=== PATIENT | male | born 1990 | race Caucasian/White ===

== ENCOUNTER 2020-05-20 21:37 | Emergency (ER) | payer OTHER ==
[~2020-05-20 21:37] MED LIST: ADDERALL XR25 MG PO; AMOXICILLIN500 M2 PO; AUGMENTIN 875 M1 TAB PO; CIPROFLOXACIN500 MG PO; CLARITIN-D 12 H1 TAB PO; CLARITIN10 MG PO; CYCLOBENZAPRINE10 MG PO; DIFLUCAN150 MG PO; FLONASE ALLERG9.9 ML NAS; FLONASE ALLERG9.9 ML NS; MOTRIN600 MG PO; Motrin,Rufen800 MG PO; NKHM; PREDNISONE10 MG PO; PROVENTIL0.09 MG/AC IH; PROZAC10 MG PO; ROBITUSSIN DM 105 ML PO; TESSALON PERLE100 M1 PO; UNKNOWN MED; VICODIN 5/500 505 MG PO; VICODIN 500 MG-1 TAB PO; ZITHROMAX250 MG PO; ZOLOFT25 MG
[2020-05-20] MEDS ORDERED: CLINDAMYCIN HC300 MG PO (23:07)
== END 2020-05-20 23:27 | disposition home or self-care (01) ==
LOC: ED 21:37
DX: L02.821 Furuncle of head [any part, except face] (principal)

== ENCOUNTER 2020-06-07 19:16 | Observation (INO) | payer OTHER ==
[~2020-06-07] VITALS: Ht 193 cm; Wt 119.4 kg
[~2020-06-07 19:16] MED LIST changes: +CLINDAMYCIN HC300 MG PO
[2020-06-07 19:28] VITALS: BP 121/89
[2020-06-07 20:22] LABS: BASO % 0.3 % (0.0-1.0); EOS # 0.2 10*3/uL (0.0-0.4); HEMATOCRIT 49.7 % (42.0-52.0); LYMPH # 2.5 10*3/uL (1.3-4.4); LYMPH % 28.2 % (27.0-41.0); MEAN CELL VOLUME 86.7 fl (80.0-94.0); MEAN CORPUSCULAR HGB 28.6 pg (27.0-31.0); MONO # 0.7 10*3/uL (0.1-1.0); MONO % 7.2 % (3.0-9.0); NEUT # 5.6 10*3/uL (2.3-7.9); NEUT % 62.1 % (47.0-73.0); PLATELET COUNT AUTOMATED 228 10*3/uL (130-400); RED BLOOD COUNT 5.73 10*6/uL (4.50-5.90); RED CELL DISTRI WIDTH 13.9 % (0-14.5)
[2020-06-07 20:50] LABS: ALBUMIN 3.7 gm/dl (3.1-4.5); ALKALINE PHOSPHATASE 109 U/L (45-117); BUN 6 mg/dl (7-24); CHLORIDE 105 mmol/L (98-107); CREATININE 1.04 mg/dL (0.70-1.30); SGOT/AST 23 IU/L (3-35); SGPT/ALT 55 U/L (12-78); SODIUM 138 mmol/L (136-145); TOTAL PROTEIN 8.3 gm/dL (6.4-8.2)
[2020-06-07 23:20] VITALS: BP 128/85
[2020-06-08 01:25] VITALS: BP 129/88
[2020-06-08 06:03] LABS: URINE AMPHETAMINES > 1000 (1000ng/ml); URINE BARBITURATES < 200 (200ng/ml); URINE BENZODIAZEPINES < 200 (200ng/ml); URINE CANNABINOIDS (THC) < 50 (50ng/ml); URINE COCAINE < 300 (300ng/ml); URINE METHADONE < 300 (300ng/ml); URINE OPIATES < 300 (300ng/ml)
[2020-06-08 06:09] LABS: URINE PHENCYCLIDINE < 25 (25ng/ml)
[2020-06-08 07:21] LABS: BASO % 0.2 % (0.0-1.0); EOS # 0.1 10*3/uL (0.0-0.4); EOS % 0.9 % (1.0-4.0); LYMPH # 0.7 10*3/uL (1.3-4.4); MEAN CELL VOLUME 86.4 fl (80.0-94.0); MEAN CORPUSCULAR HGB 28.6 pg (27.0-31.0); MEAN CORPUSCULAR HGB CONC 33.1 g/dl (33.0-37.0); MEAN PLATELET VOLUME 10.1 fl (9.6-12.3); MONO # 0.4 10*3/uL (0.1-1.0); MONO % 4.4 % (3.0-9.0); NEUT # 7.3 10*3/uL (2.3-7.9); NEUT % 86.1 % (47.0-73.0); PLATELET COUNT AUTOMATED 203 10*3/uL (130-400); RED BLOOD COUNT 5.67 10*6/uL (4.50-5.90); WHITE BLOOD COUNT 8.5 10*3/uL (4.8-10.8)
[2020-06-08 07:57] LABS: ALBUMIN 3.4 gm/dl (3.1-4.5); ALKALINE PHOSPHATASE 105 U/L (45-117); BUN 7 mg/dl (7-24); CHLORIDE 106 mmol/L (98-107); CREATININE 1.01 mg/dL (0.70-1.30); POTASSIUM 3.6 mmol/L (3.5-5.1); SGOT/AST 19 IU/L (3-35); SGPT/ALT 49 U/L (12-78); SODIUM 137 mmol/L (136-145); TOTAL PROTEIN 7.7 gm/dL (6.4-8.2)
[2020-06-08 08:00] VITALS: BP 139/81
[2020-06-08 12:00] VITALS: BP 144/69
[2020-06-08 16:00] VITALS: BP 112/67
[2020-06-08 20:00] VITALS: BP 120/66
[2020-06-09] VITALS: BP 109/64
[2020-06-09 06:42] LABS: BASO % 0.5 % (0.0-1.0); EOS # 0.2 10*3/uL (0.0-0.4); EOS % 4.3 % (1.0-4.0); HEMATOCRIT 44.3 % (42.0-52.0); LYMPH # 1.1 10*3/uL (1.3-4.4); LYMPH % 19.4 % (27.0-41.0); MEAN CELL VOLUME 86.5 fl (80.0-94.0); MEAN CORPUSCULAR HGB 28.3 pg (27.0-31.0); MEAN CORPUSCULAR HGB CONC 32.7 g/dl (33.0-37.0); MONO # 0.5 10*3/uL (0.1-1.0); MONO % 8.4 % (3.0-9.0); NEUT # 3.7 10*3/uL (2.3-7.9); PLATELET COUNT AUTOMATED 155 10*3/uL (130-400); RED BLOOD COUNT 5.12 10*6/uL (4.50-5.90); RED CELL DISTRI WIDTH 14.1 % (0-14.5); WHITE BLOOD COUNT 5.6 10*3/uL (4.8-10.8)
[2020-06-09 07:08] LABS: BUN 7 mg/dl (7-24); CHLORIDE 105 mmol/L (98-107); CREATININE 1.03 mg/dL (0.70-1.30); POTASSIUM 3.4 mmol/L (3.5-5.1); SODIUM 138 mmol/L (136-145)
[2020-06-09 08:00] VITALS: BP 123/73
[2020-06-09 12:00] VITALS: BP 124/70
[2020-06-09 16:00] VITALS: BP 127/73
[2020-06-09 20:00] VITALS: BP 133/66
[2020-06-10] VITALS: BP 137/76
[2020-06-10 06:57] LABS: BUN 6 mg/dl (7-24); CHLORIDE 109 mmol/L (98-107); CREATININE 0.94 mg/dL (0.70-1.30); POTASSIUM 3.8 mmol/L (3.5-5.1); SODIUM 141 mmol/L (136-145)
[2020-06-10 08:00] VITALS: BP 123/73
[2020-06-10] MEDS ORDERED: DOXYCYCLINE100 M3 PO (11:57)
[2020-06-10] MEDS ORDERED: CEPHALEXIN500 M1 PO (11:57)
== END 2020-06-10 13:00 | disposition home or self-care (01) ==
LOC: ED 19:16 → EDHOLD 06-08 00:49 → 5E 06-08 00:49
PROVIDERS: Family Medicine; Internal Medicine; Nurse Practitioner Family; ADMIT Internal Medicine; ATTEND Internal Medicine
DX: L03.116 Cellulitis of left lower limb (principal); R00.0 Tachycardia, unspecified; E87.2 Acidosis; F17.220 Nicotine dependence, chewing tobacco, uncomplicated; R73.9 Hyperglycemia, unspecified; E87.6 Hypokalemia; E87.8 Other disorders of electrolyte and fluid balance, not elsewhere classified; R79.89 Other specified abnormal findings of blood chemistry; R50.9 Fever, unspecified; Z71.6 Tobacco abuse counseling

== ENCOUNTER 2020-11-11 22:53 | Emergency (ER) | payer OTHER ==
[~2020-11-11] VITALS: Ht 193 cm; Wt 127.0 kg
[~2020-11-11 22:53] MED LIST changes: +CEPHALEXIN500 M1 PO; +DOXYCYCLINE100 M3 PO
[2020-11-12] MEDS ORDERED: MEDROL DOSEPAK4 MG PO (00:48)
[2020-11-12] MEDS ORDERED: CYCLOBENZAPRINE10 MG PO (00:48)
== END 2020-11-12 01:01 | disposition home or self-care (01) ==
LOC: ED 22:53
DX: M54.42 Lumbago with sciatica, left side (principal); F17.200 Nicotine dependence, unspecified, uncomplicated

== ENCOUNTER 2021-06-10 21:39 | Emergency (ER) | payer OTHER ==
[~2021-06-10 21:39] MED LIST changes: +MEDROL DOSEPAK4 MG PO
== END 2021-06-10 22:46 | disposition home or self-care (01) ==
LOC: ED 21:39
DX: R51.9 Headache, unspecified (principal); Z20.822 Contact with and (suspected) exposure to COVID-19; R50.9 Fever, unspecified

== ENCOUNTER 2021-06-24 21:40 | Emergency (ER) | payer OTHER ==
[~2021-06-24] VITALS: Ht 193 cm; Wt 127.0 kg
[2021-06-24 22:28] LABS: BASO % 0.4 % (0.0-1.0); EOS # 0.2 10*3/uL (0.0-0.4); EOS % 2.4 % (1.0-4.0); HEMATOCRIT 46.1 % (42.0-52.0); LYMPH # 2.8 10*3/uL (1.3-4.4); LYMPH % 34.5 % (27.0-41.0); MEAN CORPUSCULAR HGB 28.9 pg (27.0-31.0); MEAN CORPUSCULAR HGB CONC 33.6 g/dl (33.0-37.0); MEAN PLATELET VOLUME 9.5 fl (9.6-12.3); MONO # 0.5 10*3/uL (0.1-1.0); MONO % 6.6 % (3.0-9.0); NEUT # 4.5 10*3/uL (2.3-7.9); NEUT % 55.9 % (47.0-73.0); PLATELET COUNT AUTOMATED 194 10*3/uL (130-400); RED BLOOD COUNT 5.36 10*6/uL (4.50-5.90); RED CELL DISTRI WIDTH 13.3 % (0-14.5); WHITE BLOOD COUNT 8.1 10*3/uL (4.8-10.8)
[2021-06-24] MEDS ORDERED: ZOFRAN4 MG PO (22:28)
[2021-06-24 22:51] LABS: ALKALINE PHOSPHATASE 90 U/L (45-117); BUN 12 mg/dl (7-24); CHLORIDE 107 mmol/L (98-107); CREATININE 0.85 mg/dL (0.70-1.30); POTASSIUM 3.9 mmol/L (3.5-5.1); SGOT/AST 26 IU/L (3-35); SGPT/ALT 78 U/L (12-78); SODIUM 138 mmol/L (136-145); TOTAL PROTEIN 7.6 gm/dL (6.4-8.2)
== END 2021-06-25 00:27 | disposition home or self-care (01) ==
LOC: ED 21:40
PROVIDERS: Emergency Medicine
DX: R07.9 Chest pain, unspecified (principal); R19.7 Diarrhea, unspecified; R11.0 Nausea; F17.220 Nicotine dependence, chewing tobacco, uncomplicated

== ENCOUNTER 2021-07-06 15:16 | Emergency (ER) | payer OTHER ==
[~2021-07-06] VITALS: Ht 193 cm; Wt 127.0 kg
[~2021-07-06 15:16] MED LIST changes: +ZOFRAN4 MG PO
[2021-07-06] MEDS ORDERED: PREDNISONE20 M1 PO (20:00)
[2021-07-06] MEDS ORDERED: METHOCARBAMOL500 M1 PO (20:00)
== END 2021-07-06 20:07 | disposition home or self-care (01) ==
LOC: ED 15:16
DX: M54.42 Lumbago with sciatica, left side (principal); Z87.891 Personal history of nicotine dependence

== ENCOUNTER 2021-09-17 01:19 | Emergency (ER) | payer OTHER ==
[~2021-09-17] VITALS: Ht 193 cm; Wt 127.0 kg
[~2021-09-17 01:19] MED LIST changes: +METHOCARBAMOL500 M1 PO; +PREDNISONE20 M1 PO
[2021-09-17 01:36] LABS: BILIRUBIN Negative (Negative); BLOOD Negative (Negative); CLARITY Clear (Clear); COLOR Yellow (Yellow); GLUCOSE Negative (Negative); KETONE Negative (Negative); LEUKO ESTERASE Negative (Negative); NITRITE Negative (Negative); SPECIFIC GRAVITY 1.015 (1.001-1.030); UROBILINOGEN 0.2 E.U./dl (0.0-1.0)
[2021-09-17 02:01] LABS: RBC 0-2 rbc/hpf (0-2); WBC 0-2 wbc/hpf (0-5)
[2021-09-17] MEDS ORDERED: METRONIDAZOLE500 M1 PO (03:08)
[2021-09-17] MEDS ORDERED: CIPRO500 MG PO (03:08)
== END 2021-09-17 03:14 | disposition home or self-care (01) ==
LOC: ED 01:19
PROVIDERS: Internal Medicine
DX: K52.9 Noninfective gastroenteritis and colitis, unspecified (principal); K59.00 Constipation, unspecified; R30.9 Painful micturition, unspecified; M54.50 Low back pain, unspecified; F17.220 Nicotine dependence, chewing tobacco, uncomplicated; Z79.899 Other long term (current) drug therapy

== ENCOUNTER 2021-10-16 13:56 | Emergency (ER) | payer OTHER ==
[~2021-10-16] VITALS: Ht 193 cm; Wt 127.0 kg
[~2021-10-16 13:56] MED LIST changes: +CIPRO500 MG PO; +METRONIDAZOLE500 M1 PO
[2021-10-16] MEDS ORDERED: VIBRAMYCIN100 MG PO (15:34)
== END 2021-10-16 16:14 | disposition home or self-care (01) ==
LOC: ED 13:56
DX: L02.31 Cutaneous abscess of buttock (principal)

== ENCOUNTER 2021-11-16 20:45 | Emergency (ER) | payer OTHER ==
[~2021-11-16] VITALS: Wt 127.0 kg
[~2021-11-16 20:45] MED LIST changes: +VIBRAMYCIN100 MG PO
[2021-11-16] MEDS ORDERED: CEPHALEXIN500 M1 PO (21:23)
[2021-11-16] MEDS ORDERED: SEPTDS PO (21:23)
== END 2021-11-16 21:51 | disposition home or self-care (01) ==
LOC: ED 20:45
DX: L02.214 Cutaneous abscess of groin (principal); F17.200 Nicotine dependence, unspecified, uncomplicated

== ENCOUNTER 2022-01-18 22:40 | Emergency (ER) | payer OTHER ==
[~2022-01-18 22:40] MED LIST changes: +SEPTDS PO
== END 2022-01-19 01:34 | disposition left against medical advice (07) ==
LOC: ED 22:40
DX: M25.571 Pain in right ankle and joints of right foot (principal)

== ENCOUNTER → 2024-02-07 | Emergency (ER) | payer SELFPAY ==
[~2024-02-07] VITALS: Ht 193 cm; Wt 145.1 kg
[~2024-02-07] MED LIST changes: +ANTIVERT25 M2 PO; +Meclizine Hydrochloride 25 MG TAB PO ONE
[2024-02-07 07:11] LABS: BASO % 0.4 % (0.0-1.0); EOS # 0.2 10*3/uL (0.0-0.4); HEMATOCRIT 45.9 % (42.0-52.0); LYMPH # 2.3 10*3/uL (1.3-4.4); LYMPH % 33.8 % (27.0-41.0); MEAN CELL VOLUME 87.9 fl (80.0-94.0); MEAN CORPUSCULAR HGB 29.1 pg (27.0-31.0); MEAN CORPUSCULAR HGB CONC 33.1 g/dl (33.0-37.0); MEAN PLATELET VOLUME 9.6 fl (9.6-12.3); MONO # 0.5 10*3/uL (0.1-1.0); MONO % 6.9 % (3.0-9.0); NEUT # 3.9 10*3/uL (2.3-7.9); NEUT % 55.6 % (47.0-73.0); PLATELET COUNT AUTOMATED 205 10*3/uL (130-400); RED BLOOD COUNT 5.22 10*6/uL (4.50-5.90); RED CELL DISTRI WIDTH 13.4 % (0-14.5); WHITE BLOOD COUNT 6.9 10*3/uL (4.8-10.8)
[2024-02-07 07:38] LABS: BUN 13 mg/dl (9-23); CHLORIDE 106 mmol/L (98-107); POTASSIUM 4.1 mmol/L (3.4-5.1)
== END ==
LOC: ED 06:20
PROVIDERS: Internal Medicine
DX: U07.0 Vaping-related disorder (principal); R42 Dizziness and giddiness; E78.00 Pure hypercholesterolemia, unspecified; E87.6 Hypokalemia; G43.909 Migraine, unspecified, not intractable, without status migrainosus; F17.220 Nicotine dependence, chewing tobacco, uncomplicated

== ENCOUNTER 2024-02-23 07:05 | Emergency (ER) | payer OTHER ==
[~2024-02-23] VITALS: Wt 145.1 kg
[~2024-02-23 07:05] MED LIST changes: -Meclizine Hydrochloride 25 MG TAB PO ONE
[2024-02-23] MEDS ORDERED: Oxymetazoline Hydrochloride Nasal 15 ml bottle NAS ONE (07:45)
== END 2024-02-23 07:51 | disposition home or self-care (01) ==
LOC: ED 07:05
DX: J06.9 Acute upper respiratory infection, unspecified (principal); F17.220 Nicotine dependence, chewing tobacco, uncomplicated; Z79.899 Other long term (current) drug therapy

== ENCOUNTER 2024-04-24 23:56 | Emergency (ER) | payer OTHER ==
[~2024-04-24] VITALS: Ht 193 cm; Wt 90.7 kg
== END 2024-04-25 01:43 | disposition home or self-care (01) ==
LOC: ED 23:56
DX: U07.1 COVID-19 (principal); F17.220 Nicotine dependence, chewing tobacco, uncomplicated; Z79.899 Other long term (current) drug therapy

== ENCOUNTER 2024-10-16 20:28 | Inpatient (IN) | payer OTHER ==
[~2024-10-16] VITALS: Ht 193 cm; Wt 148.0 kg
[2024-10-16 20:55] VITALS: BP 144/75
[2024-10-16 22:13] LABS: BASO % 0.4 % (0.0-1.0); EOS # 0.2 10*3/uL (0.0-0.4); EOS % 1.6 % (1.0-4.0); HEMATOCRIT 44.6 % (42.0-52.0); MEAN CELL VOLUME 86.3 fl (80.0-94.0); MEAN CORPUSCULAR HGB 28.4 pg (27.0-31.0); MEAN PLATELET VOLUME 9.5 fl (9.6-12.3); MONO # 0.6 10*3/uL (0.1-1.0); NEUT # 6.5 10*3/uL (2.3-7.9); NEUT % 61.7 % (47.0-73.0); PLATELET COUNT AUTOMATED 195 10*3/uL (130-400); RED BLOOD COUNT 5.17 10*6/uL (4.50-5.90); RED CELL DISTRI WIDTH 13.8 % (0-14.5); WHITE BLOOD COUNT 10.6 10*3/uL (4.8-10.8)
[2024-10-16] MEDS ORDERED: Tdap Vaccine 0.5 ML SYR (Adult Vaccine) IM ONE (22:15)
[2024-10-16 22:44] LABS: BUN 17 mg/dl (9-23); CHLORIDE 100 mmol/L (98-107); CPK 523 U/L (34-171); POTASSIUM 3.5 mmol/L (3.4-5.1)
[2024-10-16] MEDS ORDERED: SODIUM CHLORIDE 0.9% 1,000 ML IV ONE (23:00)
[2024-10-16 23:11] LABS: ACT PARTIAL THROMBO TIME 29.9 SECONDS (20.0-32.1)
[2024-10-17] VITALS (7 sets, daily range): BP systolic 110–151; BP diastolic 45–64
[2024-10-17] MEDS ORDERED: traMADol Hydrochloride 50 MG TAB PO ONE (01:35)
[2024-10-17] MEDS ORDERED: Ondansetron Hydrochloride 4 MG/2 ML VIAL IV PRN (02:20)
[2024-10-17] MEDS ORDERED: Acetaminophen/Hydrocodone 5 MG/325 MG TABLET PO PRN (02:20)
[2024-10-17] MEDS ORDERED: ACETAMINOPHEN 325 MG TAB PO PRN (02:20)
[2024-10-17] MEDS ORDERED: SODIUM CHLORIDE 0.9% 1,000 ML IV SCH (02:25)
[2024-10-17] MEDS ORDERED: Piperacillin Sodium/Tazobact 50 ML IV SCH (06:00)
[2024-10-17 06:26] LABS: BUN 16 mg/dl (9-23); CHLORIDE 102 mmol/L (98-107); POTASSIUM 3.5 mmol/L (3.4-5.1)
[2024-10-17 06:31] LABS: BASO % 0.5 % (0.0-1.0); EOS # 0.2 10*3/uL (0.0-0.4); EOS % 1.9 % (1.0-4.0); HEMATOCRIT 41.6 % (42.0-52.0); MEAN CELL VOLUME 86.8 fl (80.0-94.0); MEAN CORPUSCULAR HGB 28.2 pg (27.0-31.0); MEAN CORPUSCULAR HGB CONC 32.5 g/dl (33.0-37.0); MEAN PLATELET VOLUME 10.1 fl (9.6-12.3); MONO # 0.5 10*3/uL (0.1-1.0); MONO % 6.5 % (3.0-9.0); NEUT # 5.1 10*3/uL (2.3-7.9); NEUT % 61.9 % (47.0-73.0); PLATELET COUNT AUTOMATED 183 10*3/uL (130-400); RED BLOOD COUNT 4.79 10*6/uL (4.50-5.90); RED CELL DISTRI WIDTH 14.1 % (0-14.5); WHITE BLOOD COUNT 8.3 10*3/uL (4.8-10.8)
[2024-10-17 06:39] LABS: ACT PARTIAL THROMBO TIME 30.2 SECONDS (20.0-32.1)
[2024-10-17] MEDS ORDERED: VANCOMYCIN/WATER FOR INJ (PEG) 400 ML IV SCH (20:00)
[2024-10-18 04:00] VITALS: BP 117/63
[2024-10-18 07:12] LABS: BASO % 0.8 % (0.0-1.0); EOS # 0.2 10*3/uL (0.0-0.4); EOS % 2.8 % (1.0-4.0); HEMATOCRIT 41.6 % (42.0-52.0); MEAN CELL VOLUME 86.3 fl (80.0-94.0); MEAN CORPUSCULAR HGB 28.6 pg (27.0-31.0); MEAN CORPUSCULAR HGB CONC 33.2 g/dl (33.0-37.0); MEAN PLATELET VOLUME 10.2 fl (9.6-12.3); MONO # 0.5 10*3/uL (0.1-1.0); MONO % 8.5 % (3.0-9.0); NEUT # 2.8 10*3/uL (2.3-7.9); NEUT % 53.2 % (47.0-73.0); PLATELET COUNT AUTOMATED 140 10*3/uL (130-400); RED BLOOD COUNT 4.82 10*6/uL (4.50-5.90); RED CELL DISTRI WIDTH 13.9 % (0-14.5); WHITE BLOOD COUNT 5.3 10*3/uL (4.8-10.8)
[2024-10-18 07:54] LABS: BUN 11 mg/dl (9-23); CHLORIDE 104 mmol/L (98-107); POTASSIUM 3.5 mmol/L (3.4-5.1)
[2024-10-18 08:00] VITALS: BP 133/79
[2024-10-18 08:03] LABS: CPK 214 U/L (34-171)
[2024-10-18] MEDS ORDERED: SODIUM CHLORIDE 0.9% 1,000 ML IV ONE (08:10)
[2024-10-18] MEDS ORDERED: Enoxaparin Sodium 40 MG/0.4 ML SYR SC SCH (10:00)
== END 2024-10-18 12:21 | disposition left against medical advice (07) | DRG 918 ==
LOC: ED 20:28 → 5E 10-17 01:58 → EDHOLD 10-17 01:58 → 5E 10-17 03:21
PROVIDERS: Nurse Practitioner Family; Student in an Organized Health Care Education/Training Program; ADMIT Family Medicine; ATTEND Family Medicine
DX: T63.331A Toxic effect of venom of brown recluse spider, accidental (unintentional), initial encounter (principal); L03.116 Cellulitis of left lower limb; F17.210 Nicotine dependence, cigarettes, uncomplicated; Z53.29 Procedure and treatment not carried out because of patient's decision for other reasons; Z79.01 Long term (current) use of anticoagulants; Z79.899 Other long term (current) drug therapy; Z79.2 Long term (current) use of antibiotics; Z86.16 Personal history of COVID-19; Z71.6 Tobacco abuse counseling; Y92.89 Other specified places as the place of occurrence of the external cause

== ENCOUNTER 2025-02-18 18:04 | Emergency (ER) | payer BC ==
[2025-02-18] MEDS ORDERED: PREDNISONE50 MG PO (18:39)
[2025-02-18] MEDS ORDERED: METHOCARBAMOL500 M1 PO (18:39)
[2025-02-18] MEDS ORDERED: Acetaminophen/Hydrocodone HP 10/325 PO ONE (18:40)
== END 2025-02-18 19:15 | disposition home or self-care (01) ==
LOC: ED 18:04
DX: S33.5XXA Sprain of ligaments of lumbar spine, initial encounter (principal); G43.909 Migraine, unspecified, not intractable, without status migrainosus; W19.XXXA Unspecified fall, initial encounter; Y93.89 Activity, other specified; Y92.89 Other specified places as the place of occurrence of the external cause; Y99.8 Other external cause status